=== PATIENT | male | born 1970 | race Caucasian/White ===

== ENCOUNTER 2016-11-08 11:52 | Emergency (ER) | payer OTHER ==
[2016-11-08 12:01] VITALS: BP 120/74; PULSE 69; RESP 17; TEMP 97.6
--- NOTE | 2016-11-08 12:38 | ED ---
General Adult HPI - General Chief complaint: Anxiety Stated complaint: anxiety Time Seen by Provider: 11/08/16 12:18 Source: patient, RN notes reviewed Mode of arrival: ambulatory Limitations: no limitations - History of Present Illness Initial comments: 46-year-old male significant past medical history for anxiety, who presents emergency room today with chief complaint of needing medication refill for his Xanax. He takes 1 mg 3 times daily. States he run out. States he was seen a psychiatrist and is trying to get into a new psychiatrist has been having a hard time making an appointment. Patient states that he has not been to his family doctor was unaware that his family doctor may prescribe his medication to him. He states he has been to several other places and received just a few days at a time of this medication. Patient denies any physical complaints. He does admit that his anxiety seems to be coming and going. Patient denies any recent fever, chills, shortness of breath, chest pain, back pain, abdominal pain , nausea or vomiting, numbness or tingling, dysuria or hematuria, constipation or diarrhea, headaches or visual changes, or any other complaints. - Related Data Home Medications Medication Instructions Recorded Confirmed ALPRAZolam [Xanax] 1 mg PO Q8HR 11/08/16 11/08/16 Mirtazapine [Remeron] 45 mg PO HS 11/08/16 11/08/16 Previous Rx's Medication Instructions Recorded ALPRAZolam [Xanax] 1 mg PO Q8HR #15 tab 11/08/16 Allergies Allergy/AdvReac Type Severity Reaction Status Date / Time aminophylline Allergy Unknown Verified 11/08/16 11:55 Review of Systems ROS Statement: Those systems with pertinent positive or pertinent negative responses have been documented in the HPI. ROS Other: All systems not noted in ROS Statement are negative. Past Medical History Past Medical History: Asthma Additional Past Medical History / Comment(s): antisoical behavior History of Any Multi-Drug Resistant Organisms: None Reported Past Surgical History: No Surgical Hx Reported Past Psychological History: Anxiety, Bipolar, Depression, PTSD Smoking Status: Current every day smoker Past Alcohol Use History: None Reported Past Drug Use History: None Reported General Exam - General Exam Comments Initial Comments: General: The patient is awake and alert, in no distress, and does not appear acutely ill. Eye: Pupils are equal, round and reactive to light, extra-ocular movements are intact. No nystagmus. There is normal conjunctiva bilaterally. No signs of icterus. Ears, nose, mouth and throat: There are moist mucous membranes and no oral lesions. Neck: The neck is supple, there is no tenderness or JVD. Cardiovascular: There is a regular rate and rhythm. No murmur, rub or gallop is appreciated. Respiratory: Lungs are clear to auscultation, respirations are non-labored, breath sounds are equal. No wheezes, stridor, rales, or rhonchi. Musculoskeletal: Normal ROM, no tenderness. Strength 5/5. Sensation intact. Pulses equal bilaterally 2+. Neurological: A&O x 3. CN II-XII intact, There are no obvious motor or sensory deficits. Coordination appears grossly intact. Speech is normal. Skin: Skin is warm and dry and no rashes or lesions are noted. Psychiatric: Cooperative, appropriate mood & affect, normal judgment. Limitations: no limitations Course Vital Signs 11/08/16 11:55 Temperature 97.6 F Pulse Rate 69 Respiratory 17 Rate Blood Pressure 120/74 O2 Sat by Pulse 94 L Oximetry Medical Decision Making - Medical Decision Making [facility] prescription system was checked showing the patient did receive 10 tablets of Xanax on 11/02/2016. Patient will be given short prescription of his Xanax today he is advised that he should follow up his family doctor until he is able to see his psychiatrist for further prescriptions. Advised patient that he may not receive any other prescription shins here in the emergency room as he will see a different provider every time. Advised patient that he does need to follow up his family doctor. Disposition Clinical Impression: Medication refill Disposition: HOME SELF-CARE Condition: Good Instructions: Generalized Anxiety Disorder (ED) Additional Instructions: Please follow-up the family doctor today and call and make an appointment. Please continue to try to follow-up with specialist. Please use medication as prescribed and return for any other concerns. Prescriptions: ALPRAZolam [Xanax] 1 mg PO Q8HR #15 tab Referrals: Marialuisa Cowart MD [Primary Care Provider] - 1-2 days Time of Disposition: 12:36
== END 2016-11-08 12:47 | disposition home or self-care (01) ==
LOC: EC 11:52
DX: Z76.0 Encounter for issue of repeat prescription (principal); F41.9 Anxiety disorder, unspecified; F31.9 Bipolar disorder, unspecified; F43.10 Post-traumatic stress disorder, unspecified; F17.200 Nicotine dependence, unspecified, uncomplicated; Z79.899 Other long term (current) drug therapy; Z88.8 Allergy status to other drugs, medicaments and biological substances
CPT/HCPCS: 99282